=== PATIENT | female | born 1995 | race Caucasian/White ===

== ENCOUNTER 2016-10-19 18:46 | Emergency (ER) | payer OTHER ==
[2016-10-19] MEDS ORDERED: HYDROCODONE/ACETAMINOPHEN 5/325MG TABLET ONE (19:31)
[2016-10-19] MEDS ORDERED: IBUPROFEN 600 MG TABLET ONE (19:31)
== END 2016-10-19 20:40 | disposition home or self-care (01) ==
LOC: ED 18:46
DX: L03.011 Cellulitis of right finger (principal)
CPT/HCPCS: 99283 ×2; 26010 ×2; A9270 ×2